=== PATIENT | female | born 1950 | race Caucasian/White ===

== ENCOUNTER 2017-04-14 12:27 | Emergency (ER) | payer MEDICARE, OTHER ==
[~2017-04-14] VITALS: Wt 70.8 kg
[2017-04-14 13:49] LABS: BASO % 0.3 % (0.0-1.0); HEMATOCRIT 43.2 % (37.0-47.0); HEMOGLOBIN 14.6 g/dl (12.0-16.0); LYMPH # 1.4 10*3/uL (1.3-4.4); LYMPH % 14.1 % (27.0-41.0); MEAN CELL VOLUME 90.4 fl (81.0-99.0); MEAN CORPUSCULAR HGB 30.5 pg (27.0-31.0); MEAN CORPUSCULAR HGB CONC 33.8 g/dl (33.0-37.0); MEAN PLATELET VOLUME 10.3 fl (9.6-12.3); MONO # 0.1 10*3/uL (0.1-1.0); MONO % 1.3 % (3.0-9.0); NEUT # 8.1 10*3/uL (2.3-7.9); NEUT % 83.7 % (47.0-73.0); PLATELET COUNT AUTOMATED 249 10*3/uL (130-400); RED BLOOD COUNT 4.78 10*6/uL (4.10-5.10); RED CELL DISTRI WIDTH 13.3 % (0-14.5); WHITE BLOOD COUNT 9.7 10*3/uL (4.8-10.8)
[2017-04-14 14:08] LABS: ALBUMIN 3.5 gm/dl (3.1-4.5); ALKALINE PHOSPHATASE 114 U/L (45-117); BUN 15 mg/dl (7-24); CHLORIDE 106 mmol/L (98-107); CREATININE 0.74 mg/dL (0.55-1.02); SGOT/AST 28 IU/L (3-35); SODIUM 141 mmol/L (136-145)
[2017-04-14 14:14] LABS: SGPT/ALT 21 U/L (12-78)
[2017-04-14 14:43] LABS: BILIRUBIN NEGATIVE (NEGATIVE); BLOOD NEGATIVE (NEGATIVE); CLARITY CLEAR (CLEAR); COLOR YELLOW (YELLOW); GLUCOSE NEGATIVE (NEGATIVE); KETONE NEGATIVE (NEGATIVE); LEUKO ESTERASE NEGATIVE (NEGATIVE); NITRITE NEGATIVE (NEGATIVE); UROBILINOGEN 0.2 E.U./dl (0.2-1.0)
[2017-04-14 14:51] LABS: BACTERIA TRACE; RBC 0-2 rbc/hpf (0-2)
== END 2017-04-14 15:10 | disposition home or self-care (01) ==
LOC: ED 12:27
PROVIDERS: Emergency Medicine; Physician Assistant
DX: J40 Bronchitis, not specified as acute or chronic (principal); F17.200 Nicotine dependence, unspecified, uncomplicated

== ENCOUNTER → 2018-05-16 | Outpatient (CLI) | payer MEDICARE, OTHER ==
[~2018-05-16] MED LIST: ALPRAZOLAM0.25 M1 PO; ATARAX,VISTARIL50 MG PO; BRIN10TA PO; CITALOPRAM10 MG PO; MIRTAZAPINE15 M2 PO; NICODERM T
== END | disposition home or self-care (01) ==
LOC: NM 04:17
DX: E04.1 Nontoxic single thyroid nodule (principal); R70.0 Elevated erythrocyte sedimentation rate

== ENCOUNTER 2023-10-13 18:42 | Emergency (ER) | payer MEDICARE, OTHER ==
[~2023-10-13] VITALS: Ht 157.4 cm; Wt 70.8 kg
[2023-10-13] MEDS ORDERED: VIBRAMYCIN100 MG PO (19:27)
[2023-10-13] MEDS ORDERED: Doxycycline Hyclate 100 MG CAP PO ONE (19:30)
[2023-10-13] MEDS ORDERED: Bacitracin Zinc 14 GM TUBE T ONE (19:30)
== END 2023-10-13 19:42 | disposition home or self-care (01) ==
LOC: ED 18:42
DX: S30.860A Insect bite (nonvenomous) of lower back and pelvis, initial encounter (principal); F32.A Depression, unspecified; F41.9 Anxiety disorder, unspecified; Z98.890 Other specified postprocedural states; Z90.89 Acquired absence of other organs; F17.200 Nicotine dependence, unspecified, uncomplicated; W57.XXXA Bitten or stung by nonvenomous insect and other nonvenomous arthropods, initial encounter; Y93.01 Activity, walking, marching and hiking; Y92.009 Unspecified place in unspecified non-institutional (private) residence as the place of occurrence of the external cause; Y99.8 Other external cause status